=== PATIENT | male | born 1945 | race Caucasian/White ===

== ENCOUNTER 2020-04-01 06:21 | Observation (INO) ==
[~2020-04-01 06:21] MED LIST: Buffered Lidocaine 1% SYRIN 1 ml INTRADERM ONE; Lactated Ringers 1000 ml BAG 1,000 ML IV SCH
[2020-04-01] MEDS ORDERED: Buffered Lidocaine 1% SYRIN 1 ml INTRADERM ONE (06:54)
[2020-04-01] MEDS ORDERED: ceFAZolin 2 GM PREMIX 2 GM/50 ML BAG ONE (06:54)
[2020-04-01] MEDS ORDERED: Lidocaine 2% PF 5 ML VIAL ONE ×2 (06:55→07:26)
[2020-04-01] MEDS ORDERED: Succinylcholine 200 mg VIAL 20 mg/ml 10 ml VIAL (200 mg) ONE (06:55)
[2020-04-01] MEDS ORDERED: Propofol 10 MG/ML 20 ML BTL ONE (06:55)
[2020-04-01] MEDS ORDERED: Sterile Water for Inj 10 ML ONE ×2 (06:56→09:35)
[2020-04-01] MEDS ORDERED: Midazolam 5 mg/5 ml VIAL 1 mg/ml 5 ml VIAL (5 mg) ONE (06:56)
[2020-04-01] MEDS ORDERED: EPHEDrine (Pressors) 50 MG/ML VIAL ONE ×2 (06:56→09:35)
[2020-04-01] MEDS ORDERED: Rocuronium 50 mg VIAL 10 mg/ml 5 ml VIAL (50 mg) ONE (06:57)
[2020-04-01] MEDS ORDERED: Bupivacaine 0.25% SDV 30 ML ONE (07:26)
[2020-04-01] MEDS ORDERED: fentaNYL 100 mcg/2 ml 50 MCG/ML VIAL ONE (07:28)
[2020-04-01] MEDS ORDERED: ROPIVACAINE 5 MG/ML 30 ML BTL (0.5%) ONE ×2 (07:31→07:37)
[2020-04-01] MEDS ORDERED: Dexamethasone IV 4 MG/ML VIAL 1 ml VIAL ONE (08:11)
[2020-04-01] MEDS ORDERED: fentaNYL 100 mcg/2 ml 50 MCG/ML VIAL IV PRN (08:12)
[2020-04-01] MEDS ORDERED: Ondansetron 4 mg VIAL 2 MG/ML 2 ml VIAL IV PRN ×2 (08:12→10:44)
[2020-04-01] MEDS ORDERED: Naloxone 0.4 mg VIAL 0.4 mg/ml 1 ml VIAL IV PRN (08:12)
[2020-04-01] MEDS ORDERED: HYDROmorphone 1 MG/1 ML SYRINGE IV PRN (08:12)
[2020-04-01] MEDS ORDERED: Ondansetron 4 mg VIAL 2 MG/ML 2 ml VIAL ONE (08:13)
[2020-04-01] MEDS ORDERED: Glycopyrrolate IV 0.2 MG/ML 1 ML VIAL ONE (08:38)
[2020-04-01] MEDS ORDERED: HYDROmorphone 1 MG/1 ML SYRINGE ONE (08:40)
[2020-04-01] MEDS ORDERED: fentaNYL 250 mcg/5 ml 50 MCG/ML 5 ml VIAL (250 MCG) ONE (08:41)
[2020-04-01] MEDS ORDERED: Magnesium Hydroxide LIQ 30 ML UDC PO PRN (10:44)
[2020-04-01] MEDS ORDERED: Morphine 2 MG/ML SYRINGE IV PRN (10:44)
[2020-04-01] MEDS ORDERED: diPHENhydraMINE IV 50 MG/ML 1 ml VIAL (BENADRYL) IV PRN (10:44)
[2020-04-01] MEDS ORDERED: Lactulose 30 ml UDC PO PRN (10:44)
[2020-04-01] MEDS ORDERED: diPHENhydraMINE 25 mg TAB PO PRN (10:44)
[2020-04-01] MEDS ORDERED: Ondansetron ODT 4 mg TAB 4 MG TAB PO PRN (10:44)
[2020-04-01] MEDS ORDERED: oxyCODONE/Acetamin 5/325 mg TAB PO PRN (10:44)
[2020-04-01] MEDS ORDERED: Polyethylene Glycol 3350 17 GM PACKET PO PRN (10:50)
[2020-04-01] MEDS ORDERED: Lactated Ringers 1000 ml BAG 1,000 ML IV SCH (11:00)
[2020-04-01] MEDS ORDERED: Dextrose 50% Syringe 50 ml 25 GM/50 ML SYRINGE IV PUSH PRN (14:20)
[2020-04-01] MEDS: oxyCODONE/Acetamin 5/325 mg TAB PO PRN ×3 (15:36→23:23)
[2020-04-01] MEDS: ceFAZolin 1 GM ADVAN 1 GM in NS 0.9% 50 ML 50 ML IVPB SCH (15:37)
[2020-04-01] MEDS ORDERED: Insulin GLARGINE 100 un/ml 10 ml VIAL SUBCUT SCH (21:00)
[2020-04-01] MEDS ORDERED: INSULIN DEGLUDEC 12 UNIT SUBCUT SCH (21:00)
[2020-04-01] MEDS: Magnesium Hydroxide LIQ 30 ML UDC PO SCH (21:25)
[2020-04-02] MEDS: ceFAZolin 1 GM ADVAN 1 GM in NS 0.9% 50 ML 50 ML IVPB SCH ×2 (00:38→07:36)
[2020-04-02] MEDS: oxyCODONE/Acetamin 5/325 mg TAB PO PRN ×3 (03:23→11:39)
[2020-04-02 06:27] LABS: Hematocrit 31 % (42-52); Hemoglobin 10.7 g/dL (14.0-18.0); Mean Platelet Volume 7.7 fL (7.4-10.4); Platelet Count 191 10^3/uL (150-450)
[2020-04-02 06:48] LABS: BUN/Creatinine Ratio 17.3 (8-20); Calcium 7.9 mg/dL (8.6-10.3); EGFR African American 37.7 (>60); EGFR Non-African American 31.1 (>60); Potassium 3.9 mmol/L (3.5-5.0)
[2020-04-02] MEDS: Magnesium Hydroxide LIQ 30 ML UDC PO SCH (07:35)
[2020-04-02] MEDS ORDERED: Vitamin THERAPEUTIC TAB PO SCH (09:00)
[2020-04-02] MEDS ORDERED: Lactated Ringers 500 ml BAG 500 ML IV ONE (09:06)
[2020-04-02 11:37] VITALS: BP 111/38
[2020-04-02 13:51] LABS: BUN/Creatinine Ratio 17.9 (8-20); Calcium 8.5 mg/dL (8.6-10.3); EGFR African American 37.9 (>60); EGFR Non-African American 31.3 (>60); Potassium 4.4 mmol/L (3.5-5.0)
== END 2020-04-02 15:20 | disposition home or self-care (01) ==
LOC: SSU 06:21 → OR 06:21
PROVIDERS: ADMIT Orthopaedic Surgery Adult Reconstructive Orthopaedic Surgery; ATTEND Orthopaedic Surgery Adult Reconstructive Orthopaedic Surgery

== ENCOUNTER 2020-06-30 07:27 | Observation (INO) ==
[~2020-06-30 07:27] MED LIST changes: +Famotidine IV 10 MG/ML 2 ml VIAL (20 mg) IV ONE
[2020-06-30] MEDS ORDERED: Famotidine IV 10 MG/ML 2 ml VIAL (20 mg) ONE (07:53)
[2020-06-30] MEDS ORDERED: ceFAZolin 2 GM PREMIX 2 GM/50 ML BAG ONE (07:53)
[2020-06-30] MEDS ORDERED: ROPIVACAINE 5 MG/ML 30 ML BTL (0.5%) ONE ×2 (08:59→10:14)
[2020-06-30] MEDS ORDERED: Midazolam 2 mg/2 ml VIAL 1 mg/ml 2 ml VIAL (2 mg) ONE (09:13)
[2020-06-30] MEDS ORDERED: fentaNYL 100 mcg/2 ml 50 MCG/ML VIAL ONE ×2 (09:13→09:20)
[2020-06-30] MEDS ORDERED: Naloxone 0.4 mg VIAL 0.4 mg/ml 1 ml VIAL IV PRN (11:02)
[2020-06-30] MEDS ORDERED: DiMENhydriNATE IV 50 mg/ml 1 ml VIAL IV PUSH PRN (11:02)
[2020-06-30] MEDS ORDERED: Ondansetron 4 mg VIAL 2 MG/ML 2 ml VIAL IV PRN ×2 (11:02→11:59)
[2020-06-30] MEDS ORDERED: Magnesium Hydroxide LIQ 30 ML UDC PO PRN (11:59)
[2020-06-30] MEDS ORDERED: Lactulose 30 ml UDC PO PRN (11:59)
[2020-06-30] MEDS ORDERED: oxyCODONE/Acetamin 5/325 mg TAB PO PRN (11:59)
[2020-06-30] MEDS ORDERED: diPHENhydraMINE IV 50 MG/ML 1 ml VIAL (BENADRYL) IV PRN (11:59)
[2020-06-30] MEDS ORDERED: Morphine 2 MG/ML SYRINGE IV PRN (11:59)
[2020-06-30] MEDS ORDERED: Ondansetron ODT 4 mg TAB 4 MG TAB PO PRN (11:59)
[2020-06-30] MEDS ORDERED: diPHENhydraMINE 25 mg TAB PO PRN (11:59)
[2020-06-30] MEDS ORDERED: Ondansetron 4 mg VIAL 2 MG/ML 2 ml VIAL ONE (12:58)
[2020-06-30] MEDS ORDERED: Acetaminophen IV 1 GM/100ML 100 ML ONE (13:14)
[2020-06-30] MEDS ORDERED: Dextrose 50% Syringe 50 ml 25 GM/50 ML SYRINGE IV PUSH PRN (13:51)
[2020-06-30] MEDS ORDERED: HYDROmorphone 1 MG/1 ML SYRINGE ONE (14:09)
[2020-06-30] MEDS: HYDROmorphone 1 MG/1 ML SYRINGE IV PRN ×3 (14:11→15:11)
[2020-06-30] MEDS: Lactated Ringers 1000 ml BAG 1,000 ML IV SCH (15:30)
[2020-06-30] MEDS ORDERED: oxyCODONE/Acetamin 5/325 mg TAB ONE ×3 (16:41→20:56)
[2020-06-30] MEDS: oxyCODONE/Acetamin 5/325 mg TAB PO PRN ×2 (16:45→20:58)
[2020-06-30] MEDS: ceFAZolin 1 GM ADVAN 1 GM in NS 0.9% 50 ML 50 ML IVPB SCH (19:10)
[2020-06-30] MEDS ORDERED: Insulin GLARGINE 100 un/ml 10 ml VIAL ONE (20:55)
[2020-06-30] MEDS ORDERED: Magnesium Hydroxide LIQ 30 ML UDC ONE (20:56)
[2020-06-30] MEDS: Magnesium Hydroxide LIQ 30 ML UDC PO SCH (20:58)
[2020-06-30] MEDS ORDERED: Insulin GLARGINE 100 un/ml 10 ml VIAL SUBCUT SCH (21:00)
[2020-07-01] MEDS ORDERED: Polyethylene Glycol 3350 17 GM PACKET PO PRN (00:01)
[2020-07-01] MEDS: Lactated Ringers 1000 ml BAG 1,000 ML IV SCH (01:45)
[2020-07-01] MEDS: ceFAZolin 1 GM ADVAN 1 GM in NS 0.9% 50 ML 50 ML IVPB SCH ×2 (03:40→11:41)
[2020-07-01] MEDS ORDERED: oxyCODONE/Acetamin 5/325 mg TAB ONE ×2 (05:34→11:40)
[2020-07-01] MEDS: oxyCODONE/Acetamin 5/325 mg TAB PO PRN ×2 (05:36→11:41)
[2020-07-01 07:04] LABS: Hematocrit 33 % (42-52); Hemoglobin 11.1 g/dL (14.0-18.0); Mean Platelet Volume 7.5 fL (7.4-10.4); Platelet Count 204 10^3/uL (150-450)
[2020-07-01 07:21] LABS: BUN/Creatinine Ratio 18.1 (8-20); Calcium 8.5 mg/dL (8.6-10.3); EGFR African American 45.4 (>60); EGFR Non-African American 37.5 (>60); Potassium 4.5 mmol/L (3.5-5.0)
[2020-07-01] MEDS ORDERED: Vitamin THERAPEUTIC TAB ONE (08:17)
[2020-07-01] MEDS: Magnesium Hydroxide LIQ 30 ML UDC PO SCH (08:25)
[2020-07-01] MEDS ORDERED: Vitamin THERAPEUTIC TAB PO SCH (09:00)
[2020-07-01 11:31] VITALS: BP 116/51
[2020-07-01] MEDS ORDERED: NS 0.9% 1000 ml BAG 1,000 ML IV ONE (12:59)
== END 2020-07-01 15:15 | disposition home or self-care (01) ==
LOC: SSU 07:27 → OR 07:27
PROVIDERS: ADMIT Orthopaedic Surgery Adult Reconstructive Orthopaedic Surgery; ATTEND Orthopaedic Surgery Adult Reconstructive Orthopaedic Surgery

== ENCOUNTER 2021-05-31 07:55 | Observation (INO) ==
[~2021-05-31 07:55] MED LIST changes: +Acetaminophen IV 1 GM/100ML 100 ML IV ONE
[2021-05-31] MEDS ORDERED: Acetaminophen IV 1 GM/100ML 100 ML IV ONE (07:56)
[2021-05-31] MEDS ORDERED: cefTRIAXone 2 GM ADDV.VIAL ONE (07:56)
[2021-05-31] MEDS ORDERED: Famotidine IV 10 MG/ML 2 ml VIAL (20 mg) ONE (07:57)
[2021-05-31] MEDS ORDERED: diPHENhydraMINE IV 50 MG/ML 1 ml VIAL (BENADRYL) IV PRN (09:18)
[2021-05-31] MEDS ORDERED: HYDROcodone/ACETAMIN 5/325 mg TAB PO PRN (09:18)
[2021-05-31] MEDS ORDERED: Ondansetron 4 mg VIAL 2 MG/ML 2 ml VIAL IV PRN (09:18)
[2021-05-31] MEDS ORDERED: Metoclopramide 5 MG/ML VIAL (10 mg) IV PRN (09:18)
[2021-05-31] MEDS ORDERED: fentaNYL 100 mcg/2 ml 50 MCG/ML VIAL IV PRN (09:18)
[2021-05-31] MEDS ORDERED: HYDROmorphone 1 MG/1 ML SYRINGE IV PRN (09:18)
[2021-05-31] MEDS ORDERED: Naloxone 0.4 mg VIAL 0.4 mg/ml 1 ml VIAL IV PRN (09:18)
[2021-05-31] MEDS ORDERED: Propofol 10 MG/ML 20 ML BTL ONE (09:31)
[2021-05-31] MEDS ORDERED: fentaNYL 100 mcg/2 ml 50 MCG/ML VIAL ONE (09:31)
[2021-05-31] MEDS ORDERED: Midazolam 2 mg/2 ml VIAL 1 mg/ml 2 ml VIAL (2 mg) ONE (09:32)
[2021-05-31] MEDS ORDERED: Rocuronium 50 mg VIAL 10 mg/ml 5 ml VIAL (50 mg) ONE (10:01)
[2021-05-31] MEDS ORDERED: HYDROmorphone 1 MG/1 ML SYRINGE ONE (10:21)
[2021-05-31] MEDS ORDERED: Ondansetron 4 mg VIAL 2 MG/ML 2 ml VIAL ONE (10:44)
[2021-05-31] MEDS ORDERED: Metoclopramide 5 MG/ML VIAL (10 mg) ONE (10:44)
[2021-05-31] MEDS ORDERED: Dexamethasone IV 4 MG/ML VIAL 1 ml VIAL ONE (10:44)
[2021-05-31] MEDS ORDERED: Glycopyrrolate IV 0.2 MG/ML 1 ML VIAL ONE (10:58)
[2021-05-31] MEDS ORDERED: oxyCODONE/Acetamin 5/325 mg TAB PO PRN (12:00)
[2021-05-31] MEDS ORDERED: Lidocaine 2% JELLY 6 ML TOPICAL PRN (12:05)
[2021-05-31] MEDS: NS 0.9% 1,000 ML IV SCH ×2 (12:46→22:41)
[2021-05-31] MEDS ORDERED: Insulin GLARGINE 100 un/ml 10 ml VIAL SUBCUT SCH (21:00)
[2021-06-01] MEDS: NS 0.9% 1,000 ML IV SCH (05:37)
[2021-06-01 08:23] VITALS: BP 143/70
[2021-06-01] MEDS ORDERED: Flu vaccine *QUAD* 2021-22* 0.5 ML SYRINGE IM ONE (09:00)
[2021-06-04] MEDS ORDERED: TRULICITY SUBCUT SCH (09:00)
== END 2021-06-01 09:35 | disposition home or self-care (01) ==
LOC: OR 07:55 → SSU 07:55
PROVIDERS: ADMIT Urology; ATTEND Urology